=== PATIENT | female | born 1980 | race African-American/Black ===

== ENCOUNTER 2019-01-07 17:33 | Emergency (ER) | payer MEDICAID, SELFPAY ==
[2019-01-07] MEDS ORDERED: Ketorolac Tromethamine 30 MG/ML VIAL ONE (17:51)
[2019-01-07] MEDS ORDERED: Bicillin LA 1.2 MILLION UNITS/2 ML SYRINGE ONE (18:32)
== END 2019-01-07 18:53 | disposition home or self-care (01) ==
LOC: ERS 17:33
DX: J02.0 Streptococcal pharyngitis (principal); F41.9 Anxiety disorder, unspecified; F20.9 Schizophrenia, unspecified; F31.9 Bipolar disorder, unspecified; F17.210 Nicotine dependence, cigarettes, uncomplicated
CPT/HCPCS: 87430; 96372; 99283; J0561; J1885

== ENCOUNTER 2019-01-08 08:41 | Emergency (ER) | payer SELFPAY ==
[2019-01-08] MEDS ORDERED: Dexamethasone 10 MG/ML VIAL ONE (09:08)
== END 2019-01-08 09:15 | disposition home or self-care (01) ==
LOC: ERS 08:41
DX: J02.0 Streptococcal pharyngitis (principal); F17.210 Nicotine dependence, cigarettes, uncomplicated
CPT/HCPCS: 87081; 87430; 96372; 99283; J1100

== ENCOUNTER 2019-10-15 15:25 | Outpatient (CLI) | payer MEDICARE ==
--- NOTE | 2019-10-15 15:46 | RAD ---
XR Ankle Rt 3 View STANDARD HISTORY: Injury, right ankle pain FINDINGS: No fracture or dislocation is identified. The ankle mortise is maintained. Soft tissue swelling is pr esent.
--- NOTE | 2019-10-15 15:47 | RAD ---
XR Foot Rt 3 View STANDARD HISTORY: Injury, right foot pain FINDINGS: No fracture or dislocation is identified.
== END 2019-10-15 15:26 | disposition home or self-care (01) ==
LOC: BICRAD 15:25
PROVIDERS: ATTEND Physician Assistant
DX: S97.81XA Crushing injury of right foot, initial encounter (principal); M79.89 Other specified soft tissue disorders

== ENCOUNTER 2023-10-06 23:54 | Emergency (ER) | payer MEDICARE | END 2023-10-07 02:30 | disposition home or self-care (01) | LOC: ERS 23:54 | DX: B02.9 Zoster without complications (principal); F17.210 Nicotine dependence, cigarettes, uncomplicated | CPT/HCPCS: 99282; J7512 ==